=== PATIENT | male | born 1965 | race African-American/Black ===

== ENCOUNTER 2020-03-26 10:42 | Inpatient (IN) | payer OTHER ==
--- NOTE | 2020-03-26 10:57 | BHS.RME ---
Substance Use & Tx History - Substance Use History Alcohol Substance amount: 10-12 beers Substance route: Oral Date of Last Use: 03/25/20 Cocaine- Powder Substance amount: $50 Frequency of use: Daily Substance route: Smoking Date of Last Use: 03/24/20 Marijuana/Hashish Substance amount: $20 Frequency of use: Daily Substance route: Smoking Date of Last Use: 03/25/20 Nicotine Substance amount: 1/2 pack Frequency of use: Daily Substance route: Smoking Date of Last Use: 03/26/20 - Last Treatment Date of last treatment: 2015 Treatment type: Substance Use Disorder (BRETT) Where was last treatment: Detox Physical/Psych/Mental Status - Behavior General Behavior: Increased activity (restlessness, agitation) Eye Contact: Normal - Cooperativeness Cooperativeness: Cooperative - Thinking Thought Processes: Tight, Logical, Goal Directed Thought content: Future oriented - Physical Health Problems Is patient presently having any pain?: No Does patient presently have any injuries (include location): No Does patient currently have a fever: No Is patient : No CIWA Nausea/Vomitin Muscle Tremors: 3 Anxiety: 3 Agitation: 3 Paroxysmal Sweats: 5 Orientation: 0-Oriented Tacttile Disturbances: 1-Very Mild Itch/Numbness Auditory Disturbances: 0-None Visual Disturbances: 0-None Headache: 0-None Present CIWA-Ar Total Score: 18
[2020-03-26 11:33] VITALS: BMI 22.1
--- NOTE | 2020-03-26 11:37 | HP ---
CIWA Score Nausea/Vomitin Muscle Tremors: 3 Anxiety: 3 Agitation: 3 Paroxysmal Sweats: 5 Orientation: 0-Oriented Tacttile Disturbances: 1-Very Mild Itch/Numbness Auditory Disturbances: 0-None Visual Disturbances: 0-None Headache: 0-None Present CIWA-Ar Total Score: 18 - Admission Criteria OASAS Guidelines: Admission for Medically Managed Detox: Requires at least one of the followin. CIWA greater than 12 2. Seizures within the past 24 hours 3. Delirium tremens within the past 24 hours 4. Hallucinations within the past 24 hours 5. Acute intervention needed for co occurring medical disorder 6. Acute intervention needed for co occurring psychiatric disorder 7. Severe withdrawal that cannot be handled at a lower level of care (continued vomiting, continued diarrhea, abnormal vital signs) requiring intravenous medication and/or fluids 8. Admitting History and Physical - Admission Chief Complaint: " I had 8 years of abstinence and then I relapsed in 2010 and just been drinking heavily." History of Present Illness: 54 year old male with history of alcohol dependence with withdrawals seeking detox. He had 8 years of abstinence and relapsed in 2010. He was last at [facility] on 10/30-11/03/15 completed detox and then discharged but relapsed soon thereafter. 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 He has a court appearance for alcohol possession and a family court ase on 04/02/20. YAJAIRA=0 CIWA=18 Urine Tox: LUANN THC He meets criteria for detox as he has multiple medical co-morbidities and has poor environment for recovery and is at high risk for relapse and sequelae if withdraws. History Source: Patient Limitations to Obtaining History: No Limitations - Past Medical History Gastrointestinal: Yes: GERD Musculoskeletal: Yes: Osteoarthritis Endocrine: Yes: Hyperthyroidism - Past Surgical History Past Surgical History: Yes: None - Smoking History Smoking history: Current every day smoker Have you smoked in the past 12 months: Yes Aproximately how many cigarettes per day: 10 - Alcohol/Substance Use Hx Alcohol Use: Yes Number of Drinks Daily: 6 Date of Last Use: 03/11/20 - Social History Usual Living Arrangement: Yes: Alone, Other Do you think of yourself as: Straight/Heterosexual ADL: Independent Occupation: unemployed History of Recent Travel: No Admission ROS S - HPI Allergies/Adverse Reactions: Allergies Allergy/AdvReac Type Severity Reaction Status Date / Time No Known Allergies Allergy Verified 03/26/20 11:13 Exam Limitations: No Limitations - Ebola screening Have you traveled outside of the country in the last 21 days: No Have you had contact with anyone from an Ebola affected area: No Have you been sick,other than usual withdrawal symptoms: No Do you have a fever: No - Review of Systems Constitutional: Chills, Diaphoresis EENT: reports: No Symptoms Reported Respiratory: reports: No Symptoms reported Cardiac: reports: No Symptoms Reported GI: reports: No Symptoms Reported : reports: No Symptoms Reported Musculoskeletal: reports: No Symptoms Reported Integumentary: reports: No Symptoms Reported Neuro: reports: Headache, Tremors Endocrine: reports: No Symptoms Reported Hematology: reports: No Symptoms Reported Psychiatric: reports: Judgement Intact, Orientated x3, Agitated, Anxious Other Systems: Reviewed and Negative Patient History - Patient Medical History Hx Anemia: No Hx Asthma: No Hx Chronic Obstructive Pulmonary Disease (COPD): No Hx Cancer: No Hx Cardiac Disorders: No Hx Congestive Heart Failure: No Hx Hypertension: No Hx Hypercholesterolemia: No Hx Pacemaker: No HX Cerebrovascular Accident: No Hx Seizures: No Hx Dementia: No Hx Diabetes: No Hx Gastrointestinal Disorders: Yes (GERD) Hx Liver Disease: No Hx Genitourinary Disorders: No Hx Sexually Transmitted Disorders: Yes (CHLAMYDIA TREATED 5 DAYS AGO, 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) Hx Renal Disease (ESRD): No Hx Thyroid Disease: No Hx Human Immunodeficiency Virus (HIV): No Hx Hepatitis C: No Hx Depression: Yes (never treated but wants treatment) Hx Suicide Attempt: No Hx Bipolar Disorder: No Hx Schizophrenia: No - Patient Surgical History Past Surgical History: No Hx Neurologic Surgery: No Hx Cataract Extraction: No Hx Cardiac Surgery: No Hx Lung Surgery: No Hx Breast Surgery: No Hx Breast Biopsy: No Hx Abdominal Surgery: No Hx Appendectomy: No Hx Cholecystectomy: No Hx Genitourinary Surgery: No Hx Section: No Hx Orthopedic Surgery: No Anesthesia Reaction: No - PPD History Previous Implant?: Yes Documented Results: Positive w/o proof Date: 08/07/92 - Smoking Cessation Smoking history: Current every day smoker Have you smoked in the past 12 months: Yes Aproximately how many cigarettes per day: 10 Hx Chewing Tobacco Use: No Initiated information on smoking cessation: Yes 'Breaking Loose' booklet given: 03/26/20 - Substances abused Alcohol Substance route: Oral Frequency: Daily Amount used: 10-12 BEERS Age of first use: 16 Date of last use: 03/25/20 Crack Substance route: Smoking Frequency: Daily Amount used: $50 Age of first use: 20 Date of last use: 03/24/20 Marijuana/Hashish Substance route: Oral Frequency: 3-6 times per week Amount used: $20 Age of first use: 16 Date of last use: 03/25/20 Admission Physical Exam BHS - Vital Signs Vital Signs: Vital Signs - 24 hr 03/26/20 11:26 Temperature 97.6 F Pulse Rate 70 Respiratory 18 Rate Blood Pressure 151/92 - Physical General Appearance: Yes: No Apparent Distress, Nourished, Appropriately Dressed, Thin, Tremorous, Irritable, Sweating, Anxious HEENTM: Yes: EOMI, Hearing grossly Normal, Normal ENT Inspection, Normocephalic, Normal Voice, JAVY, Pharynx Normal, Tm's normal Respiratory: Yes: Chest Non-Tender, Lungs Clear, Normal Breath Sounds, No Respiratory Distress, No Accessory Muscle Use Neck: Yes: No masses,lesions,Nodules, Supple, Trachea in good position Breast: Yes: Within Normal Limits Cardiology: Yes: Regular Rhythm, Regular Rate, S1, S2 Abdominal: Yes: Normal Bowel Sounds, Non Tender, Flat, Soft Genitourinary: Yes: Within Normal Limits Back: Yes: Normal Inspection Musculoskeletal: Yes: full range of Motion, Gait Steady, Pelvis Stable Extremities: Yes: Normal Capillary Refill, Normal Inspection, Normal Range of Motion, Non-Tender Neurological: Yes: browning processor II-XII NML intact, Fully Oriented, Alert, Motor Strength 5/5, Normal Mood/Affect, Normal Response Integumentary: Yes: Normal Color, Dry, Warm Lymphatic: Yes: Within Normal Limits - Diagnostic (1) Alcohol dependence with uncomplicated withdrawal Current Visit: Yes Status: Acute (2) Cannabis dependence Current Visit: Yes Status: Chronic (3) Cocaine dependence Current Visit: Yes Status: Chronic Qualifiers: Substance use status: uncomplicated Qualified Code(s): F14.20 - Cocaine dependence, uncomplicated (4) GERD (gastroesophageal reflux disease) Current Visit: Yes Status: Chronic Qualifiers: Esophagitis presence: without esophagitis Qualified Code(s): K21.9 - Gastro-esophageal reflux disease without esophagitis (5) Low back pain Current Visit: Yes Status: Chronic Qualifiers: Back pain laterality: unspecified Sciatica presence: with sciatica presence unspecified (6) Nicotine dependence Current Visit: Yes Status: Chronic Qualifiers: Nicotine product type: cigarettes Substance use status: uncomplicated Qualified Code(s): F17.210 - Nicotine dependence, cigarettes, uncomplicated Comment: SMOKING CESSATION REFUSED AT THIS TIME AFTER DISCUSSION OF MAT. (7) Osteoarthritis of multiple joints Current Visit: Yes Status: Chronic Qualifiers: Osteoarthritis type: primary Qualified Code(s): M89.49 - Other hypertrophic osteoarthropathy, multiple sites (8) PPD positive, treated Current Visit: Yes Status: Chronic Cleared for Admission S - Detox or Rehab [facility] Level of Care: Medically Managed Detox Regimen/Protocol: Librium Claeared for Rehab Admission: No Screened but not Admitted - Documentation of Visit Screened but not Admitted: No Breathalyzer - Breathalyzer Breathalyzer: 0 Urine Drug Screen - Test Device Lot number: [id number] Expiration date: 03/10/22 - Control Is test valid?: Yes - Results Drug screen NEGATIVE: No Urine drug screen results: THC-Marijuana, LUANN-Cocaine Inpatient Rehab Admission - Rehab Decision to Admit Inpatient rehab admission?: No
[2020-03-26] MEDS ORDERED: MAGNESIUM HYDROX 2400MG/30ML ORAL SUSPENSION 30 ML CUP PO PRN (11:48)
[2020-03-26] MEDS ORDERED: IBUPROFEN 400 MG TABLET (FP) PO PRN (11:48)
[2020-03-26] MEDS ORDERED: NICOTINE POLACRILEX 2 MG GUM BUC PRN (11:48)
[2020-03-26] MEDS ORDERED: MAG HYDROX/AL HYDROX/SIMETH 30 ML UNIT-DOSE CUP PO PRN (11:48)
[2020-03-26] MEDS ORDERED: ACETAMINOPHEN 325 MG TABLET (FP) PO PRN ×2 (11:48)
[2020-03-26] MEDS ORDERED: MENTHOL/PHENOL 1 EACH UD MM PRN (11:48)
[2020-03-26] MEDS ORDERED: BISMUTH SUBSALICYLATE 524 MG/30 ML UD PO PRN (11:48)
[2020-03-26] MEDS ORDERED: METHOCARBAMOL 500 MG TABLET PO PRN (11:48)
[2020-03-26] MEDS ORDERED: MAGNESIUM CITRATE 300 ML BOTTLE PO PRN (11:48)
[2020-03-26] MEDS ORDERED: chlordiazePOXIDE HCL 25 MG CAPSULE PO PRN (11:48)
[2020-03-26] MEDS ORDERED: ONDANSETRON *ODT* 4 MG TABLET SL ONE (12:30)
[2020-03-26] MEDS: chlordiazePOXIDE HCL 25 MG CAPSULE PO SCH ×3 (13:24→22:46)
[2020-03-26] MEDS: PRENATAL VITAMINS W/ FOLIC ACID TABLET (FP) PO SCH (13:24)
[2020-03-26] MEDS: NICOTINE 7 MG/24 HOURS TOPICAL PATCH TD SCH (13:24)
[2020-03-26] MEDS: hydrOXYzine PAMOATE 25 MG CAPSULE (FP) PO SCH ×3 (13:58→22:47)
[2020-03-26 14:34] LABS: MCH 32.4 pg (25.7-33.7); MCHC 33.4 g/dl (32.0-35.9); MEAN PLT VOLUME 8.9 fl (7.5-11.1); PLATELET COUNT 201 K/MM3 (134-434); RBC 4.64 M/mm3 (4.00-5.60); RDW 14.9 % (11.9-15.9); WHITE BLOOD COUNT 6.1 K/mm3 (4.0-10.0)
[2020-03-26 14:46] LABS: ALBUMIN 4.1 g/dl (3.4-5.0); BILIRUBIN,TOTAL 2.3 mg/dL (0.2-1); BLOOD UREA NITROGEN 13.2 mg/dL (7-18); CALCIUM 9.2 mg/dL (8.5-10.1); CREATININE 1.2 mg/dL (0.55-1.3); POTASSIUM 3.9 mmol/L (3.5-5.1); TOT PROT 8.2 g/dl (6.4-8.2)
[2020-03-26] MEDS: THIAMINE HCL 100 MG TABLET (FP) PO SCH (22:46)
[2020-03-26] MEDS: MELATONIN 5 MG TABLETS PO SCH (23:01)
[2020-03-27] MEDS: hydrOXYzine PAMOATE 25 MG CAPSULE (FP) PO SCH ×5 (05:46→22:34)
[2020-03-27] MEDS: chlordiazePOXIDE HCL 25 MG CAPSULE PO SCH ×4 (05:46→22:34)
[2020-03-27] MEDS: PRENATAL VITAMINS W/ FOLIC ACID TABLET (FP) PO SCH (10:41)
[2020-03-27] MEDS: NICOTINE 7 MG/24 HOURS TOPICAL PATCH TD SCH (10:41)
[2020-03-27] MEDS: PANTOPRAZOLE 40 MG TABLET PO SCH (10:41)
--- NOTE | 2020-03-27 14:01 | PN ---
S CIWA - CIWA Score Nausea/Vomitin-Mild Nausea/No Vomiting Muscle Tremors: 2 Anxiety: 2 Agitation: 2 Paroxysmal Sweats: No Perspiration Orientation: 0-Oriented Tacttile Disturbances: 1-Very Mild Itch/Numbness Auditory Disturbances: 0-None Visual Disturbances: 0-None Headache: 2-Mild CIWA-Ar Total Score: 10 S Progress Note (SOAP) Subjective: alert,irritable,anxious,interrupted sleep,tremor,pain in tghe body and back,[place] Objective: 03/27/20 15:42 Vital Signs Temperature 98.1 F 03/27/20 12:51 Pulse Rate 84 03/27/20 12:51 Respiratory Rate 17 03/27/20 12:51 Blood Pressure 144/94 03/27/20 12:51 O2 Sat by Pulse Oximetry (%) 99 03/27/20 12:51 Laboratory Last Values WBC 6.1 K/mm3 (4.0-10.0) 03/26/20 11:50 RBC 4.64 M/mm3 (4.00-5.60) 03/26/20 11:50 Hgb 15.0 GM/dL (11.7-16.9) 03/26/20 11:50 Hct 45.0 % (35.4-49) 03/26/20 11:50 MCV 97.0 fl (80-96) H 03/26/20 11:50 MCH 32.4 pg (25.7-33.7) 03/26/20 11:50 MCHC 33.4 g/dl (32.0-35.9) 03/26/20 11:50 RDW 14.9 % (11.9-15.9) 03/26/20 11:50 Plt Count 201 K/MM3 (134-434) 03/26/20 11:50 MPV 8.9 fl (7.5-11.1) 03/26/20 11:50 Sodium 138 mmol/L (136-145) 03/26/20 11:50 Potassium 3.9 mmol/L (3.5-5.1) 03/26/20 11:50 Chloride 101 mmol/L (98-107) 03/26/20 11:50 Carbon Dioxide 26 mmol/L (21-32) 03/26/20 11:50 Anion Gap 11 MMOL/L (8-16) 03/26/20 11:50 BUN 13.2 mg/dL (7-18) 03/26/20 11:50 Creatinine 1.2 mg/dL (0.55-1.3) 03/26/20 11:50 Est GFR (CKD-EPI)AfAm 79.53 03/26/20 11:50 Est GFR (CKD-EPI)NonAf 68.62 03/26/20 11:50 Random Glucose 146 mg/dL (74-106) H 03/26/20 11:50 Calcium 9.2 mg/dL (8.5-10.1) 03/26/20 11:50 Total Bilirubin 2.3 mg/dL (0.2-1) H 03/26/20 11:50 AST 72 U/L (15-37) H 03/26/20 11:50 ALT 38 U/L (13-61) 03/26/20 11:50 Alkaline Phosphatase 58 U/L (45-117) 03/26/20 11:50 Total Protein 8.2 g/dl (6.4-8.2) 03/26/20 11:50 Albumin 4.1 g/dl (3.4-5.0) 03/26/20 11:50 Syphilis Serology Non-reactive (NONREACTIVE) 03/26/20 11:50 COVID-19 (PALAK) Not detected (Not Detected) 03/26/20 12:40 Assessment: 03/27/20 15:43 withdrawal symptom Plan: continue detox librium regimen,repeat cmp,fasting glucose in am
[2020-03-27] MEDS: THIAMINE HCL 100 MG TABLET (FP) PO SCH (22:34)
[2020-03-27] MEDS: MELATONIN 5 MG TABLETS PO SCH (22:34)
[2020-03-28] MEDS: chlordiazePOXIDE HCL 25 MG CAPSULE PO SCH ×3 (06:04→17:49)
[2020-03-28] MEDS: hydrOXYzine PAMOATE 25 MG CAPSULE (FP) PO SCH ×4 (06:04→17:49)
[2020-03-28] MEDS: PANTOPRAZOLE 40 MG TABLET PO SCH (10:45)
[2020-03-28] MEDS: NICOTINE 7 MG/24 HOURS TOPICAL PATCH TD SCH (10:45)
[2020-03-28] MEDS: PRENATAL VITAMINS W/ FOLIC ACID TABLET (FP) PO SCH (10:45)
--- NOTE | 2020-03-28 10:50 | PN ---
[facility] CIWA - CIWA Score Nausea/Vomitin-No Nausea/No Vomiting Muscle Tremors: 3 Anxiety: 3 Agitation: 2 Paroxysmal Sweats: 2 Orientation: 0-Oriented Tacttile Disturbances: 0-None Auditory Disturbances: 1-Very Mild Visual Disturbances: 0-None Headache: 0-None Present CIWA-Ar Total Score: 11 S Progress Note (SOAP) Subjective: Complaints of tremors, anxiety, agitation, sweats and noise sensitivity. Objective: 03/28/20 10:49 Vital Signs 03/28/20 03/28/20 05:58 09:15 Temperature 97.5 F L 97.7 F Pulse Rate 70 85 Respiratory 16 20 Rate Blood Pressure 123/84 131/85 O2 Sat by Pulse 96 96 Oximetry (%) Laboratory Last Values WBC 6.1 K/mm3 (4.0-10.0) 03/26/20 11:50 RBC 4.64 M/mm3 (4.00-5.60) 03/26/20 11:50 Hgb 15.0 GM/dL (11.7-16.9) 03/26/20 11:50 Hct 45.0 % (35.4-49) 03/26/20 11:50 MCV 97.0 fl (80-96) H 03/26/20 11:50 MCH 32.4 pg (25.7-33.7) 03/26/20 11:50 MCHC 33.4 g/dl (32.0-35.9) 03/26/20 11:50 RDW 14.9 % (11.9-15.9) 03/26/20 11:50 Plt Count 201 K/MM3 (134-434) 03/26/20 11:50 MPV 8.9 fl (7.5-11.1) 03/26/20 11:50 Sodium 138 mmol/L (136-145) 03/26/20 11:50 Potassium 3.9 mmol/L (3.5-5.1) 03/26/20 11:50 Chloride 101 mmol/L (98-107) 03/26/20 11:50 Carbon Dioxide 26 mmol/L (21-32) 03/26/20 11:50 Anion Gap 11 MMOL/L (8-16) 03/26/20 11:50 BUN 13.2 mg/dL (7-18) 03/26/20 11:50 Creatinine 1.2 mg/dL (0.55-1.3) 03/26/20 11:50 Est GFR (CKD-EPI)AfAm 79.53 03/26/20 11:50 Est GFR (CKD-EPI)NonAf 68.62 03/26/20 11:50 Random Glucose 146 mg/dL (74-106) H 03/26/20 11:50 Calcium 9.2 mg/dL (8.5-10.1) 03/26/20 11:50 Total Bilirubin 2.3 mg/dL (0.2-1) H 03/26/20 11:50 AST 72 U/L (15-37) H 03/26/20 11:50 ALT 38 U/L (13-61) 03/26/20 11:50 Alkaline Phosphatase 58 U/L (45-117) 03/26/20 11:50 Total Protein 8.2 g/dl (6.4-8.2) 03/26/20 11:50 Albumin 4.1 g/dl (3.4-5.0) 03/26/20 11:50 Syphilis Serology Non-reactive (NONREACTIVE) 03/26/20 11:50 COVID-19 (PALAK) Not detected (Not Detected) 03/26/20 12:40 Labs noted. Assessment: 03/28/20 10:49 Alert and oriented x 3, in no acute respiratory distress. Full ROM, ambulating in the unit without assistance. Withdrawal symptoms. Plan: Continue detox protocol.
[2020-03-28 12:36] LABS: BILIRUBIN,TOTAL 0.6 mg/dL (0.2-1); BLOOD UREA NITROGEN 12.8 mg/dL (7-18); CALCIUM 8.6 mg/dL (8.5-10.1); POTASSIUM 3.4 mmol/L (3.5-5.1); TOT PROT 6.4 g/dl (6.4-8.2)
[2020-03-28 18:10] VITALS: TEMP 97.3
[2020-03-28 20:11] VITALS: BP 142/97; PULSE 112
--- NOTE | 2020-03-28 20:12 | DS ---
[facility] Detox Discharge Summary Admission Date: 03/26/20 Discharge Date: 03/28/20 - History Present History: Alcohol Dependence, Cannabis Dependence, Cocaine Dependence Additional Comments: CLIENT SIGNED OUT AMA. DECLINES TO CONT TXMENT AT THIS TIME. NOT OPEN TO FURTHER DISCUSSION ABOUT RISK INVOLVED IN ABRUPTING TXMENT. OR ENCOURAGEMENT TO CONT TXMENT. CLIENT REPORTS HE HAS SOMETHING TO TAKE CARE AT HOME. HE DENIES ANY C/O, TO INCLUDES SOB, C.P. A/O X3 NAD CV- RRR LUNGS CTAB EXTREMITIES- AMBULATING W/O DIFFICULTY Pertinent Past History: GERD LOW BACK PAIN NICOTINE DEP + PPD - Physical Exam Results Vital Signs: Vital Signs Temperature 97.3 F L 03/28/20 17:16 Pulse Rate 112 H 03/28/20 20:10 Respiratory Rate 18 03/28/20 20:10 Blood Pressure 142/97 03/28/20 20:10 O2 Sat by Pulse Oximetry (%) 100 03/28/20 20:10 Pertinent Admission Physical Exam Findings: WITHDRAWAL SX'S Laboratory Tests 03/26/20 03/26/20 03/26/20 11:50 11:50 11:50 WBC 6.1 RBC 4.64 Hgb 15.0 Hct 45.0 MCV 97.0 H MCH 32.4 MCHC 33.4 RDW 14.9 Plt Count 201 MPV 8.9 Sodium 138 Potassium 3.9 Chloride 101 Carbon Dioxide 26 Anion Gap 11 BUN 13.2 Creatinine 1.2 Est GFR (CKD-EPI)AfAm 79.53 Est GFR (CKD-EPI)NonAf 68.62 Random Glucose 146 H Fasting Glucose Calcium 9.2 Total Bilirubin 2.3 H AST 72 H ALT 38 Alkaline Phosphatase 58 Total Protein 8.2 Albumin 4.1 Syphilis Serology Non-reactive COVID-19 ([facility]AK) 03/26/20 03/28/20 03/28/20 12:40 07:15 07:15 WBC RBC Hgb Hct MCV MCH MCHC RDW Plt Count MPV Sodium 142 Potassium 3.4 L Chloride 108 H Carbon Dioxide 27 Anion Gap 7 L BUN 12.8 Creatinine 1.0 Est GFR (CKD-EPI)AfAm 99.15 Est GFR (CKD-EPI)NonAf 85.55 Random Glucose 87 Fasting Glucose 88 Calcium 8.6 Total Bilirubin 0.6 AST 76 H ALT 43 Alkaline Phosphatase 61 Total Protein 6.4 Albumin 3.0 L Syphilis Serology COVID-19 (PALAK) Not detected - Treatment Hospital Course: Discharged Condition Good Patient has Accepted a Rehab Referral to: DECLINES - Medication Discharge Medications: Ambulatory Orders Omeprazole [Prilosec] 40 mg PO DAILY 10/31/15 - Diagnosis (1) Alcohol dependence with uncomplicated withdrawal Status: Resolved (2) Cannabis dependence Status: Chronic (3) Cocaine dependence Status: Chronic Qualifiers: Substance use status: uncomplicated Qualified Code(s): F14.20 - Cocaine dependence, uncomplicated (4) GERD (gastroesophageal reflux disease) Status: Chronic Qualifiers: Esophagitis presence: without esophagitis Qualified Code(s): K21.9 - Gastro-esophageal reflux disease without esophagitis (5) Low back pain Status: Chronic Qualifiers: Back pain laterality: unspecified Sciatica presence: with sciatica presence unspecified (6) Nicotine dependence Status: Chronic Qualifiers: Nicotine product type: cigarettes Substance use status: uncomplicated Qualified Code(s): F17.210 - Nicotine dependence, cigarettes, uncomplicated (7) PPD positive, treated Status: Chronic - AMA Did Patient Leave Against Medical Advice: Yes
[2020-03-29] MEDS ORDERED: chlordiazePOXIDE HCL 10 MG CAPSULE PO PRN
[2020-03-29] MEDS ORDERED: chlordiazePOXIDE HCL 10 MG CAPSULE PO SCH (05:00)
[2020-03-30] MEDS ORDERED: chlordiazePOXIDE HCL 10 MG CAPSULE PO SCH (05:00)
--- NOTE | 2020-03-30 14:34 | BHS.RME ---
Substance Use & Tx History - Substance Use History Alcohol Substance amount: 8 of 18 ozs of beer Frequency of use: Daily Date of Last Use: 03/29/20 Cocaine-Crack Substance amount: 20$ Frequency of use: Less than 3 times per week Substance route: Smoking Date of Last Use: 03/29/20 Marijuana/Hashish Substance amount: 20$ Frequency of use: Less than 3 times per week Substance route: Smoking Physical/Psych/Mental Status - Behavior Eye Contact: Normal - Cooperativeness Cooperativeness: Cooperative - Thinking Thought Processes: Logical Thought content: Future oriented - Physical Health Problems Is patient presently having any pain?: No Does patient presently have any injuries (include location): No Does patient currently have a fever: No CIWA Nausea/Vomitin-No Nausea/No Vomiting Muscle Tremors: 1-None Visible, but [place] Anxiety: 0-No Anxiety, at Ease Agitation: 0-Normal Activity Paroxysmal Sweats: No Perspiration Orientation: 0-Oriented Tacttile Disturbances: 0-None Auditory Disturbances: 0-None Visual Disturbances: 0-None Headache: 0-None Present CIWA-Ar Total Score: 1
--- NOTE | 2020-03-30 14:47 | HP ---
CIWA Score Nausea/Vomitin-No Nausea/No Vomiting Muscle Tremors: 1-None Visible, but [place] Anxiety: 0-No Anxiety, at Ease Agitation: 0-Normal Activity Paroxysmal Sweats: No Perspiration Orientation: 0-Oriented Tacttile Disturbances: 0-None Auditory Disturbances: 0-None Visual Disturbances: 0-None Headache: 0-None Present CIWA-Ar Total Score: 1 - Admission Criteria [facility]ASAS Guidelines: Admission for Medically Managed Detox: Requires at least one of the followin. CIWA greater than 12 2. Seizures within the past 24 hours 3. Delirium tremens within the past 24 hours 4. Hallucinations within the past 24 hours 5. Acute intervention needed for co occurring medical disorder 6. Acute intervention needed for co occurring psychiatric disorder 7. Severe withdrawal that cannot be handled at a lower level of care (continued vomiting, continued diarrhea, abnormal vital signs) requiring intravenous medication and/or fluids 8. Admitting History and Physical - Admission Chief Complaint: i madhavi help to stop driinking alcohol,cocaine and marijuana History of Present Illness: this 54 years old male with alcohol,crack and marijuana abused,seeking helpp,patient was admitted in [facility] from 03/16/20 to 03/28/20 left [facility]a homeless History Source: Patient Limitations to Obtaining History: No Limitations - Past Medical History Gastrointestinal: Yes: GERD Musculoskeletal: Yes: Osteoarthritis Endocrine: Yes: Hyperthyroidism - Past Surgical History Past Surgical History: Yes: None - Smoking History Smoking history: Current every day smoker Have you smoked in the past 12 months: Yes Aproximately how many cigarettes per day: 10 - Alcohol/Substance Use Hx Alcohol Use: Yes Number of Drinks Daily: 6 Date of Last Use: 03/29/20 - Social History Usual Living Arrangement: Yes: Other (homeless) Do you think of yourself as: Straight/Heterosexual ADL: Support Services Occupation: unemployed History of Recent Travel: No Other Social History: homeless,unemployed,no legl issue Admission ROS S - HPI Chief Complaint: I need help to stop drinking alcohol,crack and marijuana Allergies/Adverse Reactions: Allergies Allergy/AdvReac Type Severity Reaction Status Date / Time No Known Allergies Allergy Verified 03/26/20 11:13 History of Present Illness: this 54 years old male with alcohol,crack and narijuana abused,need help, last detox 03/26/2020 to 03/28/2020 left ama homeless unemployed nicotine [id number] denied seizure,denied syncope longest sobriety 8 years gerd patient contracted and agreed to go to rehab Exam Limitations: No Limitations - Ebola screening Have you traveled outside of the country in the last 21 days: No Have you had contact with anyone from an Ebola affected area: No Have you been sick,other than usual withdrawal symptoms: No Do you have a fever: No - Review of Systems Constitutional: No Symptoms Reported EENT: reports: No Symptoms Reported Respiratory: reports: No Symptoms reported Cardiac: reports: No Symptoms Reported GI: reports: No Symptoms Reported, Other (history of gerd) : reports: No Symptoms Reported Musculoskeletal: reports: No Symptoms Reported Integumentary: reports: No Symptoms Reported Neuro: reports: No Symptoms reported Endocrine: reports: No Symptoms Reported Hematology: reports: No Symptoms Reported Psychiatric: reports: No Sypmtoms Reported, Judgement Intact, Mood/Affect Appropiate, Orientated x3 Other Systems: Reviewed and Negative Patient History - Patient Medical History Hx Anemia: No Hx Asthma: No Hx Chronic Obstructive Pulmonary Disease (COPD): No Hx Cancer: No Hx Cardiac Disorders: No Hx Congestive Heart Failure: No Hx Hypertension: No Hx Hypercholesterolemia: No Hx Pacemaker: No HX Cerebrovascular Accident: No Hx Seizures: No Hx Dementia: No Hx Diabetes: No Hx Gastrointestinal Disorders: Yes (GERD) Hx Liver Disease: No Hx Genitourinary Disorders: No Hx Sexually Transmitted Disorders: Yes (CHLAMYDIA TREATED 5 DAYS AGO, 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) Hx Renal Disease (ESRD): No Hx Thyroid Disease: No Hx Human Immunodeficiency Virus (HIV): No (last 2019 negative) Hx Hepatitis C: No Hx Depression: Yes (anxiety) Hx Suicide Attempt: No Hx Bipolar Disorder: No Hx Schizophrenia: No - Patient Surgical History Past Surgical History: No Hx Neurologic Surgery: No Hx Cataract Extraction: No Hx Cardiac Surgery: No Hx Lung Surgery: No Hx Breast Surgery: No Hx Breast Biopsy: No Hx Abdominal Surgery: No Hx Appendectomy: No Hx Cholecystectomy: No Hx Genitourinary Surgery: No Hx Section: No Hx Orthopedic Surgery: No Anesthesia Reaction: No - PPD History Previous Implant?: Yes Documented Results: Positive w/o proof Implanted On Prior [facility] Admission?: No Results: cxr(-)03/27/20 PPD to be Administered?: No - Smoking Cessation Smoking history: Current every day smoker Have you smoked in the past 12 months: Yes Aproximately how many cigarettes per day: 10 Hx Chewing Tobacco Use: No Initiated information on smoking cessation: Yes 'Breaking Loose' booklet given: 03/30/20 - Substance & Tx. History Hx Alcohol Use: Yes Hx Substance Use: Yes Substance Use Type: Alcohol, Cocaine, Marijuana - Substances abused Alcohol Substance route: Oral Frequency: Daily Amount used: 10-12 BEERS Age of first use: 16 Date of last use: 03/29/20 Crack Substance route: Smoking Frequency: Daily Amount used: $50 Age of first use: 20 Date of last use: 03/29/20 Marijuana/Hashish Substance route: Oral Frequency: 3-6 times per week Amount used: $20 Age of first use: 16 Date of last use: 03/29/20 Admission Physical Exam [facility] - Physical General Appearance: Yes: Within Normal Limits HEENTM: Yes: Normal ENT Inspection, JAVY, Pharynx Normal Respiratory: Yes: Lungs Clear, Normal Breath Sounds, No Respiratory Distress Neck: Yes: Within Normal Limits, Supple, Trachea in good position Breast: Yes: Within Normal Limits Cardiology: Yes: Within Normal Limits, Regular Rhythm, Regular Rate, S1, S2 Abdominal: Yes: Within Normal Limits, Normal Bowel Sounds, Non Tender, Flat, Soft Genitourinary: Yes: Within Normal Limits Back: Yes: Within Normal Limits, Normal Inspection Musculoskeletal: Yes: full range of Motion Extremities: Yes: Within Normal Limits 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 NML intact, Fully Oriented, Alert, Motor Strength 5/5 Integumentary: Yes: Within Normal Limits Lymphatic: Yes: Within Normal Limits - Diagnostic (1) Alcohol dependence Status: Chronic Qualifiers: Complication of substance-induced condition: uncomplicated Qualified Code(s): F10.230 - Alcohol dependence with withdrawal, uncomplicated (2) Cannabis dependence Status: Chronic (3) Crack cocaine use Status: Chronic (4) GERD (gastroesophageal reflux disease) Status: Chronic Qualifiers: Esophagitis presence: without esophagitis Qualified Code(s): K21.9 - Gastro-esophageal reflux disease without esophagitis (5) PPD positive, treated Status: Chronic Cleared for Admission [facility] - Detox or Rehab Claeared for Rehab Admission: Yes Breathalyzer - Breathalyzer Breathalyzer: 0 Urine Drug Screen - Test Device Lot number: [id number] Expiration date: 03/10/22 - Control Is test valid?: Yes - Results Drug screen NEGATIVE: No Urine drug screen results: THC-Marijuana, LUANN-Cocaine Inpatient Rehab Admission - Rehab Decision to Admit Inpatient rehab admission?: Yes - Initial Determination Are CD services needed?: Yes Free of communicable disease: Yes Not in need of hospitalization: Yes - Rehab Admission Criteria Previous failed treatment: Yes Poor recovery environment: Yes Comorbidities: Yes Lacks judgement: No Patient is meeting Inpatient Rehab admission criteria:: Yes
[2020-03-30] MEDS ORDERED: NICOTINE POLACRILEX 2 MG GUM BUC PRN (15:04)
[2020-03-30] MEDS ORDERED: guaiFENesin 200 MG/10 ML 10 ML UNIT-DOSE CUPS PO PRN (15:04)
[2020-03-30] MEDS ORDERED: IBUPROFEN 400 MG TABLET (FP) PO PRN (15:04)
[2020-03-30] MEDS ORDERED: LOPERAMIDE HCL 2 MG CAPSULE PO PRN (15:04)
[2020-03-30] MEDS ORDERED: MAGNESIUM HYDROX 2400MG/30ML ORAL SUSPENSION 30 ML CUP PO PRN (15:04)
[2020-03-30] MEDS ORDERED: MAG HYDROX/AL HYDROX/SIMETH 30 ML UNIT-DOSE CUP PO PRN (15:04)
[2020-03-30] MEDS ORDERED: ACETAMINOPHEN 325 MG TABLET (FP) PO PRN (15:04)
[2020-03-30] MEDS ORDERED: MAGNESIUM CITRATE 300 ML BOTTLE PO PRN (15:04)
[2020-03-30] MEDS ORDERED: P-EPHED 60MG/TRIPROLIDI 2.5MG TABLET PO PRN (15:04)
[2020-03-30] MEDS ORDERED: hydrOXYzine PAMOATE 25 MG CAPSULE (FP) PO SCH (18:00)
[2020-03-30] MEDS ORDERED: MELATONIN 5 MG TABLETS PO SCH (22:00)
[2020-03-30] MEDS ORDERED: THIAMINE HCL 100 MG TABLET (FP) PO SCH (22:00)
[2020-03-31] MEDS ORDERED: chlordiazePOXIDE HCL 10 MG CAPSULE PO ONE (05:00)
[2020-03-31] MEDS ORDERED: PRENATAL VITAMINS W/ FOLIC ACID TABLET (FP) PO SCH (10:00)
[2020-03-31] MEDS ORDERED: NICOTINE 7 MG/24 HOURS TOPICAL PATCH TD SCH (10:00)
[2020-03-31] MEDS ORDERED: FAMOTIDINE 20 MG TABLET PO SCH (10:00)
== END 2020-03-28 20:12 | disposition left against medical advice (07) | DRG 770 ==
LOC: YASAS 10:42 → Y6N 11:18
PROVIDERS: ADMIT Allergy & Immunology; ATTEND Allergy & Immunology
PROC: HZ2ZZZZ Detoxification Services for Substance Abuse Treatment (ICD-10-PCS; principal; 2020-03-26)
DX: F10.230 Alcohol dependence with withdrawal, uncomplicated (principal); F14.20 Cocaine dependence, uncomplicated; F12.20 Cannabis dependence, uncomplicated; F17.210 Nicotine dependence, cigarettes, uncomplicated; E05.90 Thyrotoxicosis, unspecified without thyrotoxic crisis or storm; K21.9 Gastro-esophageal reflux disease without esophagitis; M54.40 Lumbago with sciatica, unspecified side; M89.49 Other hypertrophic osteoarthropathy, multiple sites; Z86.19 Personal history of other infectious and parasitic diseases; R76.11 Nonspecific reaction to tuberculin skin test without active tuberculosis; Z59.0 Homelessness
CPT/HCPCS: 36415; 71046-TC-FY; 80053; 82947; 85027; 86780; U0003

== ENCOUNTER 2020-12-28 10:09 | Inpatient (IN) | payer OTHER ==
[2020-12-28 10:41] VITALS: BMI 22.5
[2020-12-28] MEDS ORDERED: NICOTINE POLACRILEX 2 MG GUM BUC PRN (12:34)
[2020-12-28] MEDS ORDERED: MAG HYDROX/AL HYDROX/SIMETH 30 ML UNIT-DOSE CUP PO PRN (12:34)
[2020-12-28] MEDS ORDERED: ACETAMINOPHEN 325 MG TABLET (FP) PO PRN ×2 (12:34)
[2020-12-28] MEDS ORDERED: METHOCARBAMOL 500 MG TABLET PO PRN (12:34)
[2020-12-28] MEDS ORDERED: MENTHOL/PHENOL 1 EACH UD MM PRN (12:34)
[2020-12-28] MEDS ORDERED: MAGNESIUM HYDROX 2400MG/30ML ORAL SUSPENSION 30 ML CUP PO PRN (12:34)
[2020-12-28] MEDS ORDERED: MAGNESIUM CITRATE 300 ML BOTTLE PO PRN (12:34)
[2020-12-28] MEDS ORDERED: ONDANSETRON *ODT* 4 MG TABLET SL PRN (12:34)
[2020-12-28] MEDS ORDERED: LORazepam 1 MG TABLET PO PRN (12:34)
[2020-12-28] MEDS ORDERED: BISMUTH SUBSALICYLATE 524 MG/30 ML PO PRN (12:34)
[2020-12-28] MEDS ORDERED: LISINOPRIL 10 MG TABLET PO ONE (13:30)
[2020-12-28] MEDS: NICOTINE 14 MG/24 HOURS TOPICAL PATCH TD SCH (13:56)
[2020-12-28] MEDS: PRENATAL VITAMINS W/ FOLIC ACID TABLET (FP) PO SCH (13:57)
[2020-12-28] MEDS: hydrOXYzine PAMOATE 25 MG CAPSULE (FP) PO SCH ×3 (13:57→22:18)
[2020-12-28] MEDS: LORazepam 2 MG TABLET PO SCH ×2 (18:38→22:19)
[2020-12-28 20:17] LABS: HEMATOCRIT 44.6 % (35.4-49); MCH 32.9 pg (25.7-33.7); MCHC 33.7 g/dl (32.0-35.9); MEAN CELL VOLUME 97.8 fl (80-96); MEAN PLT VOLUME 9.3 fl (7.5-11.1); PLATELET COUNT 199 K/MM3 (134-434); RBC 4.56 M/mm3 (4.00-5.60); RDW 15.7 % (11.9-15.9)
[2020-12-28 20:18] LABS: BLOOD UREA NITROGEN 12.3 mg/dL (7-18)
[2020-12-28 20:20] LABS: ALBUMIN 4.2 g/dl (3.4-5.0)
[2020-12-28 20:23] LABS: BILIRUBIN,TOTAL 1.2 mg/dL (0.2-1); TOT PROT 8.3 g/dl (6.4-8.2)
[2020-12-28 21:12] LABS: HIV INTERPRETATION NEGATIVE (NEGATIVE)
[2020-12-28] MEDS: THIAMINE HCL 100 MG TABLET (FP) PO SCH (22:18)
[2020-12-28] MEDS: MELATONIN 5 MG TABLETS PO SCH (22:18)
[2020-12-29] MEDS: LORazepam 2 MG TABLET PO SCH ×4 (05:52→22:25)
[2020-12-29] MEDS: hydrOXYzine PAMOATE 25 MG CAPSULE (FP) PO SCH ×5 (05:52→22:25)
[2020-12-29] MEDS: ASPIRIN 81 MG CHEWABLE TABLETS PO SCH (11:06)
[2020-12-29] MEDS: PRENATAL VITAMINS W/ FOLIC ACID TABLET (FP) PO SCH (11:06)
[2020-12-29] MEDS: PANTOPRAZOLE 40 MG TABLET PO SCH (11:06)
[2020-12-29] MEDS: NICOTINE 14 MG/24 HOURS TOPICAL PATCH TD SCH (11:07)
[2020-12-29] MEDS: amLODIPine BESYLATE 5 MG TABLET (FP) PO SCH (13:53)
[2020-12-29] MEDS: THIAMINE HCL 100 MG TABLET (FP) PO SCH (22:25)
[2020-12-29] MEDS: MELATONIN 5 MG TABLETS PO SCH (22:26)
[2020-12-30] MEDS: LORazepam 1 MG TABLET PO SCH ×4 (05:37→22:32)
[2020-12-30] MEDS: hydrOXYzine PAMOATE 25 MG CAPSULE (FP) PO SCH ×5 (05:37→22:32)
[2020-12-30] MEDS: PANTOPRAZOLE 40 MG TABLET PO SCH (10:17)
[2020-12-30] MEDS: amLODIPine BESYLATE 5 MG TABLET (FP) PO SCH (10:17)
[2020-12-30] MEDS: PRENATAL VITAMINS W/ FOLIC ACID TABLET (FP) PO SCH (10:17)
[2020-12-30] MEDS: ASPIRIN 81 MG CHEWABLE TABLETS PO SCH (10:18)
[2020-12-30] MEDS: NICOTINE 14 MG/24 HOURS TOPICAL PATCH TD SCH (10:18)
[2020-12-30] MEDS: MELATONIN 5 MG TABLETS PO SCH (22:31)
[2020-12-30] MEDS: THIAMINE HCL 100 MG TABLET (FP) PO SCH (22:32)
[2020-12-31] MEDS ORDERED: LORazepam 0.5 MG TABLET PO PRN
[2020-12-31] MEDS: LORazepam 0.5 MG TABLET PO SCH ×4 (06:00→22:30)
[2020-12-31] MEDS: hydrOXYzine PAMOATE 25 MG CAPSULE (FP) PO SCH ×5 (06:00→22:31)
[2020-12-31 10:07] LABS: SARS-CoV-2 NAA Not Detected (Not Detected)
[2020-12-31] MEDS: ASPIRIN 81 MG CHEWABLE TABLETS PO SCH (10:18)
[2020-12-31] MEDS: NICOTINE 14 MG/24 HOURS TOPICAL PATCH TD SCH (10:18)
[2020-12-31] MEDS: PANTOPRAZOLE 40 MG TABLET PO SCH (10:18)
[2020-12-31] MEDS: amLODIPine BESYLATE 5 MG TABLET (FP) PO SCH (10:18)
[2020-12-31] MEDS: IBUPROFEN 400 MG TABLET (FP) PO PRN ×2 (10:19→17:43)
[2020-12-31] MEDS: PRENATAL VITAMINS W/ FOLIC ACID TABLET (FP) PO SCH (12:13)
[2020-12-31] MEDS: MELATONIN 5 MG TABLETS PO SCH (22:30)
[2020-12-31] MEDS: THIAMINE HCL 100 MG TABLET (FP) PO SCH (22:30)
[2021-01-01] MEDS ORDERED: LORazepam 0.5 MG TABLET PO ONE (05:00)
[2021-01-01] MEDS: hydrOXYzine PAMOATE 25 MG CAPSULE (FP) PO SCH ×2 (05:38→09:34)
[2021-01-01] MEDS: amLODIPine BESYLATE 5 MG TABLET (FP) PO SCH (09:33)
[2021-01-01] MEDS: ASPIRIN 81 MG CHEWABLE TABLETS PO SCH (09:33)
[2021-01-01] MEDS: PANTOPRAZOLE 40 MG TABLET PO SCH (09:33)
[2021-01-01] MEDS: PRENATAL VITAMINS W/ FOLIC ACID TABLET (FP) PO SCH (09:34)
[2021-01-01] MEDS: NICOTINE 14 MG/24 HOURS TOPICAL PATCH TD SCH (09:34)
[2021-01-01 09:47] VITALS: BP 124/86; PULSE 85; TEMP 98.4
== END 2021-01-01 09:40 | disposition home or self-care (01) | DRG 774 ==
LOC: YASAS 10:09 → Y6N 12:09
PROVIDERS: ADMIT Allergy & Immunology; ATTEND Allergy & Immunology
PROC: HZ2ZZZZ Detoxification Services for Substance Abuse Treatment (ICD-10-PCS; principal; 2020-12-28)
DX: F10.230 Alcohol dependence with withdrawal, uncomplicated (principal); F14.20 Cocaine dependence, uncomplicated; F12.20 Cannabis dependence, uncomplicated; F17.210 Nicotine dependence, cigarettes, uncomplicated; E05.90 Thyrotoxicosis, unspecified without thyrotoxic crisis or storm; I10 Essential (primary) hypertension; K21.9 Gastro-esophageal reflux disease without esophagitis; M89.49 Other hypertrophic osteoarthropathy, multiple sites; R74.01 Elevation of levels of liver transaminase levels; Z59.0 Homelessness
CPT/HCPCS: 36415; 80053; 85027; 86780; 87389; C9803; U0003; U0005

== ENCOUNTER 2021-03-23 14:47 | Inpatient (IN) | payer OTHER ==
[2021-03-23 17:45] VITALS: BMI 22.8
[2021-03-23] MEDS ORDERED: MENTHOL/PHENOL 1 EACH UD MM PRN (20:05)
[2021-03-23] MEDS ORDERED: ACETAMINOPHEN 325 MG TABLET (FP) PO PRN ×2 (20:05)
[2021-03-23] MEDS ORDERED: MAG HYDROX/AL HYDROX/SIMETH 30 ML UNIT-DOSE CUP PO PRN (20:05)
[2021-03-23] MEDS ORDERED: ONDANSETRON *ODT* 4 MG TABLET SL PRN (20:05)
[2021-03-23] MEDS ORDERED: BISMUTH SUBSALICYLATE 524 MG/30 ML PO PRN (20:05)
[2021-03-23] MEDS ORDERED: MAGNESIUM HYDROX 2400MG/30ML ORAL SUSPENSION 30 ML CUP PO PRN (20:05)
[2021-03-23] MEDS ORDERED: MAGNESIUM CITRATE 300 ML BOTTLE PO PRN (20:05)
[2021-03-23] MEDS ORDERED: IBUPROFEN 400 MG TABLET (FP) PO PRN (20:05)
[2021-03-23] MEDS ORDERED: LORazepam 1 MG TABLET PO PRN (20:05)
[2021-03-23] MEDS ORDERED: NICOTINE 10 MG CARTRIDGE (INHALER) IH PRN (20:05)
[2021-03-23] MEDS: LORazepam 2 MG TABLET PO SCH (22:19)
[2021-03-23] MEDS: THIAMINE HCL 100 MG TABLET (FP) PO SCH (22:20)
[2021-03-23] MEDS: MELATONIN 5 MG TABLETS PO SCH (22:20)
[2021-03-23] MEDS: hydrOXYzine PAMOATE 25 MG CAPSULE (FP) PO SCH (22:20)
[2021-03-24] MEDS: hydrOXYzine PAMOATE 25 MG CAPSULE (FP) PO SCH ×5 (05:37→22:52)
[2021-03-24] MEDS: LORazepam 2 MG TABLET PO SCH ×4 (05:37→22:52)
[2021-03-24] MEDS ORDERED: amLODIPine BESYLATE 5 MG TABLET (FP) PO SCH (10:00)
[2021-03-24] MEDS: PRENATAL VITAMINS W/ FOLIC ACID TABLET (FP) PO SCH (10:17)
[2021-03-24] MEDS: PANTOPRAZOLE 40 MG TABLET PO SCH (10:17)
[2021-03-24] MEDS: amLODIPine BESYLATE 5 MG TABLET (FP) PO SCH (10:17)
[2021-03-24] MEDS: ASPIRIN 81 MG CHEWABLE TABLETS PO SCH (10:18)
[2021-03-24 11:05] LABS: HEMATOCRIT 40.9 % (35.4-49); HEMOGLOBIN 13.9 GM/dL (11.7-16.9); MCH 33.6 pg (25.7-33.7); MCHC 34.1 g/dl (32.0-35.9); MEAN CELL VOLUME 98.6 fl (80-96); PLATELET COUNT 174 10^3/uL (134-434); RBC 4.14 M/mm3 (4.00-5.60); RDW 14.2 % (11.9-15.9); WHITE BLOOD COUNT 6.5 K/mm3 (4.0-10.0)
[2021-03-24 11:20] LABS: ALBUMIN 3.4 g/dl (3.4-5.0); CALCIUM 8.6 mg/dL (8.5-10.1)
[2021-03-24 11:21] LABS: BILIRUBIN,TOTAL 0.4 mg/dL (0.2-1); TOT PROT 6.8 g/dl (6.4-8.2)
[2021-03-24 11:23] LABS: BLOOD UREA NITROGEN 14.8 mg/dL (7-18)
[2021-03-24] MEDS: THIAMINE HCL 100 MG TABLET (FP) PO SCH (22:52)
[2021-03-24] MEDS: MELATONIN 5 MG TABLETS PO SCH (22:52)
[2021-03-25] MEDS: hydrOXYzine PAMOATE 25 MG CAPSULE (FP) PO SCH ×5 (05:56→22:19)
[2021-03-25] MEDS: LORazepam 1 MG TABLET PO SCH ×4 (05:56→22:19)
[2021-03-25] MEDS: amLODIPine BESYLATE 5 MG TABLET (FP) PO SCH (10:08)
[2021-03-25] MEDS: ASPIRIN 81 MG CHEWABLE TABLETS PO SCH (10:08)
[2021-03-25] MEDS: PRENATAL VITAMINS W/ FOLIC ACID TABLET (FP) PO SCH (10:08)
[2021-03-25] MEDS: METHOCARBAMOL 500 MG TABLET PO PRN (10:08)
[2021-03-25] MEDS: PANTOPRAZOLE 40 MG TABLET PO SCH (10:08)
[2021-03-25] MEDS: THIAMINE HCL 100 MG TABLET (FP) PO SCH (22:19)
[2021-03-25] MEDS: MELATONIN 5 MG TABLETS PO SCH (22:19)
[2021-03-26] MEDS ORDERED: LORazepam 0.5 MG TABLET PO PRN
[2021-03-26] MEDS: hydrOXYzine PAMOATE 25 MG CAPSULE (FP) PO SCH ×5 (06:02→22:25)
[2021-03-26] MEDS: LORazepam 0.5 MG TABLET PO SCH ×4 (06:06→22:25)
[2021-03-26] MEDS: PRENATAL VITAMINS W/ FOLIC ACID TABLET (FP) PO SCH (10:07)
[2021-03-26] MEDS: amLODIPine BESYLATE 5 MG TABLET (FP) PO SCH (10:07)
[2021-03-26] MEDS: PANTOPRAZOLE 40 MG TABLET PO SCH (10:07)
[2021-03-26] MEDS: ASPIRIN 81 MG CHEWABLE TABLETS PO SCH (10:07)
[2021-03-26] MEDS: METHOCARBAMOL 500 MG TABLET PO PRN (10:08)
[2021-03-26] MEDS: TAMSULOSIN HCL 0.4 MG CAP PO SCH (12:30)
[2021-03-26] MEDS: MELATONIN 5 MG TABLETS PO SCH (22:25)
[2021-03-26] MEDS: THIAMINE HCL 100 MG TABLET (FP) PO SCH (22:25)
[2021-03-27] MEDS ORDERED: LORazepam 0.5 MG TABLET PO ONE (05:00)
[2021-03-27] MEDS: hydrOXYzine PAMOATE 25 MG CAPSULE (FP) PO SCH ×3 (05:02→14:03)
[2021-03-27] MEDS: TAMSULOSIN HCL 0.4 MG CAP PO SCH (07:33)
[2021-03-27 09:45] VITALS: BP 140/91; PULSE 71; TEMP 96.9
[2021-03-27] MEDS: ASPIRIN 81 MG CHEWABLE TABLETS PO SCH (10:13)
[2021-03-27] MEDS: PRENATAL VITAMINS W/ FOLIC ACID TABLET (FP) PO SCH (10:13)
[2021-03-27] MEDS: amLODIPine BESYLATE 5 MG TABLET (FP) PO SCH (10:13)
[2021-03-27] MEDS: PANTOPRAZOLE 40 MG TABLET PO SCH (10:13)
== END 2021-03-27 15:04 | disposition home or self-care (01) | DRG 775 ==
LOC: YASAS 14:47 → Y3N 20:22
PROVIDERS: ADMIT Allergy & Immunology; ATTEND Allergy & Immunology
PROC: HZ2ZZZZ Detoxification Services for Substance Abuse Treatment (ICD-10-PCS; principal; 2021-03-23)
DX: F10.230 Alcohol dependence with withdrawal, uncomplicated (principal); F12.20 Cannabis dependence, uncomplicated; F17.210 Nicotine dependence, cigarettes, uncomplicated; I11.0 Hypertensive heart disease with heart failure; I50.9 Heart failure, unspecified; K21.9 Gastro-esophageal reflux disease without esophagitis; E05.90 Thyrotoxicosis, unspecified without thyrotoxic crisis or storm; M15.9 Polyosteoarthritis, unspecified
CPT/HCPCS: 36415; 80053; 85027; 86780; C9803; U0003; U0005

== ENCOUNTER 2021-04-02 06:56 | Inpatient (IN) | payer OTHER ==
[2021-04-02 07:43] VITALS: BMI 22.2
[2021-04-02] MEDS ORDERED: BISMUTH SUBSALICYLATE 524 MG/30 ML PO PRN (09:01)
[2021-04-02] MEDS ORDERED: LORazepam 1 MG TABLET PO PRN (09:01)
[2021-04-02] MEDS ORDERED: MAGNESIUM HYDROX 2400MG/30ML ORAL SUSPENSION 30 ML CUP PO PRN (09:01)
[2021-04-02] MEDS ORDERED: NICOTINE POLACRILEX 2 MG GUM BUC PRN (09:01)
[2021-04-02] MEDS ORDERED: MENTHOL/PHENOL 1 EACH UD MM PRN (09:01)
[2021-04-02] MEDS ORDERED: ONDANSETRON *ODT* 4 MG TABLET SL PRN (09:01)
[2021-04-02] MEDS ORDERED: MAG HYDROX/AL HYDROX/SIMETH 30 ML UNIT-DOSE CUP PO PRN (09:01)
[2021-04-02] MEDS ORDERED: NICOTINE 10 MG CARTRIDGE (INHALER) IH PRN (09:01)
[2021-04-02] MEDS ORDERED: IBUPROFEN 400 MG TABLET (FP) PO PRN (09:01)
[2021-04-02] MEDS ORDERED: ACETAMINOPHEN 325 MG TABLET (FP) PO PRN ×2 (09:01)
[2021-04-02] MEDS ORDERED: MAGNESIUM CITRATE 300 ML BOTTLE PO PRN (09:01)
[2021-04-02] MEDS: NICOTINE 21 MG/24 HOURS TOPICAL PATCH TD SCH (10:46)
[2021-04-02] MEDS: PANTOPRAZOLE 40 MG TABLET PO SCH (10:48)
[2021-04-02] MEDS: LORazepam 2 MG TABLET PO SCH ×3 (10:48→22:38)
[2021-04-02] MEDS: ASPIRIN 81 MG CHEWABLE TABLETS PO SCH (10:48)
[2021-04-02] MEDS: amLODIPine BESYLATE 5 MG TABLET (FP) PO SCH (10:49)
[2021-04-02] MEDS: PRENATAL VITAMINS W/ FOLIC ACID TABLET (FP) PO SCH (10:49)
[2021-04-02] MEDS: hydrOXYzine PAMOATE 25 MG CAPSULE (FP) PO SCH ×4 (10:49→22:38)
[2021-04-02 13:54] LABS: HEMATOCRIT 41.8 % (35.4-49); HEMOGLOBIN 14.4 GM/dL (11.7-16.9); MCH 33.5 pg (25.7-33.7); MCHC 34.5 g/dl (32.0-35.9); MEAN CELL VOLUME 97.3 fl (80-96); MEAN PLT VOLUME 8.6 fl (7.5-11.1); PLATELET COUNT 231 10^3/uL (134-434); RDW 14.2 % (11.9-15.9); WHITE BLOOD COUNT 7.9 K/mm3 (4.0-10.0)
[2021-04-02 14:09] LABS: BLOOD UREA NITROGEN 13.3 mg/dL (7-18)
[2021-04-02 14:11] LABS: ALBUMIN 4.4 g/dl (3.4-5.0)
[2021-04-02 14:12] LABS: CREATININE 1.2 mg/dL (0.55-1.3)
[2021-04-02 14:14] LABS: TOT PROT 8.3 g/dl (6.4-8.2)
[2021-04-02 14:15] LABS: BILIRUBIN,TOTAL 1.9 mg/dL (0.2-1)
[2021-04-02 14:59] LABS: HIV INTERPRETATION NEGATIVE (NEGATIVE)
[2021-04-02] MEDS: THIAMINE HCL 100 MG TABLET (FP) PO SCH (22:38)
[2021-04-02] MEDS: MELATONIN 5 MG TABLETS PO SCH (22:38)
[2021-04-03] MEDS: LORazepam 2 MG TABLET PO SCH ×4 (05:41→22:17)
[2021-04-03] MEDS: hydrOXYzine PAMOATE 25 MG CAPSULE (FP) PO SCH ×5 (05:41→22:17)
[2021-04-03] MEDS: PRENATAL VITAMINS W/ FOLIC ACID TABLET (FP) PO SCH (10:17)
[2021-04-03] MEDS: METHOCARBAMOL 500 MG TABLET PO PRN (10:18)
[2021-04-03] MEDS: amLODIPine BESYLATE 5 MG TABLET (FP) PO SCH (10:18)
[2021-04-03] MEDS: PANTOPRAZOLE 40 MG TABLET PO SCH (10:18)
[2021-04-03] MEDS: ASPIRIN 81 MG CHEWABLE TABLETS PO SCH (10:18)
[2021-04-03] MEDS: NICOTINE 21 MG/24 HOURS TOPICAL PATCH TD SCH (10:20)
[2021-04-03] MEDS: MELATONIN 5 MG TABLETS PO SCH (22:17)
[2021-04-03] MEDS: THIAMINE HCL 100 MG TABLET (FP) PO SCH (22:17)
[2021-04-04] MEDS: hydrOXYzine PAMOATE 25 MG CAPSULE (FP) PO SCH ×5 (06:13→21:59)
[2021-04-04] MEDS: LORazepam 1 MG TABLET PO SCH ×4 (06:13→21:59)
[2021-04-04] MEDS: ASPIRIN 81 MG CHEWABLE TABLETS PO SCH (10:01)
[2021-04-04] MEDS: PRENATAL VITAMINS W/ FOLIC ACID TABLET (FP) PO SCH (10:01)
[2021-04-04] MEDS: amLODIPine BESYLATE 5 MG TABLET (FP) PO SCH (10:01)
[2021-04-04] MEDS: NICOTINE 21 MG/24 HOURS TOPICAL PATCH TD SCH (10:01)
[2021-04-04] MEDS: PANTOPRAZOLE 40 MG TABLET PO SCH (10:01)
[2021-04-04] MEDS: METHOCARBAMOL 500 MG TABLET PO PRN ×2 (10:01→21:59)
[2021-04-04] MEDS: THIAMINE HCL 100 MG TABLET (FP) PO SCH (21:59)
[2021-04-04] MEDS: MELATONIN 5 MG TABLETS PO SCH (21:59)
[2021-04-05] MEDS ORDERED: LORazepam 0.5 MG TABLET PO PRN
[2021-04-05] MEDS: LORazepam 0.5 MG TABLET PO SCH ×4 (06:00→22:12)
[2021-04-05] MEDS: hydrOXYzine PAMOATE 25 MG CAPSULE (FP) PO SCH ×5 (06:00→22:13)
[2021-04-05] MEDS: PRENATAL VITAMINS W/ FOLIC ACID TABLET (FP) PO SCH (10:15)
[2021-04-05] MEDS: PANTOPRAZOLE 40 MG TABLET PO SCH (10:15)
[2021-04-05] MEDS: amLODIPine BESYLATE 5 MG TABLET (FP) PO SCH (10:15)
[2021-04-05] MEDS: ASPIRIN 81 MG CHEWABLE TABLETS PO SCH (10:15)
[2021-04-05] MEDS: NICOTINE 21 MG/24 HOURS TOPICAL PATCH TD SCH (10:16)
[2021-04-05 14:25] LABS: ALBUMIN 3.6 g/dl (3.4-5.0)
[2021-04-05 14:28] LABS: BILIRUBIN,DIRECT 0.2 mg/dL (0.0-0.2)
[2021-04-05 14:30] LABS: BILIRUBIN,TOTAL 1.2 mg/dL (0.2-1); TOT PROT 7.4 g/dl (6.4-8.2)
[2021-04-05] MEDS: THIAMINE HCL 100 MG TABLET (FP) PO SCH (22:12)
[2021-04-05] MEDS: MELATONIN 5 MG TABLETS PO SCH (22:12)
[2021-04-06] MEDS ORDERED: LORazepam 0.5 MG TABLET PO ONE (05:00)
[2021-04-06] MEDS: hydrOXYzine PAMOATE 25 MG CAPSULE (FP) PO SCH ×2 (05:54→10:20)
[2021-04-06 09:31] VITALS: BP 111/70; PULSE 78; TEMP 98.4
[2021-04-06] MEDS: PRENATAL VITAMINS W/ FOLIC ACID TABLET (FP) PO SCH (10:19)
[2021-04-06] MEDS: PANTOPRAZOLE 40 MG TABLET PO SCH (10:20)
[2021-04-06] MEDS: amLODIPine BESYLATE 5 MG TABLET (FP) PO SCH (10:20)
[2021-04-06] MEDS: NICOTINE 21 MG/24 HOURS TOPICAL PATCH TD SCH (10:20)
[2021-04-06] MEDS: ASPIRIN 81 MG CHEWABLE TABLETS PO SCH (10:20)
== END 2021-04-06 12:20 | disposition home or self-care (01) | DRG 775 ==
LOC: YASAS 06:56 → Y6N 10:02
PROVIDERS: ADMIT Allergy & Immunology; ATTEND Allergy & Immunology
PROC: HZ2ZZZZ Detoxification Services for Substance Abuse Treatment (ICD-10-PCS; principal; 2021-04-02)
DX: F10.230 Alcohol dependence with withdrawal, uncomplicated (principal); F12.10 Cannabis abuse, uncomplicated; F17.210 Nicotine dependence, cigarettes, uncomplicated; F10.220 Alcohol dependence with intoxication, uncomplicated; E86.0 Dehydration; I10 Essential (primary) hypertension; N40.0 Benign prostatic hyperplasia without lower urinary tract symptoms; M19.90 Unspecified osteoarthritis, unspecified site; R76.11 Nonspecific reaction to tuberculin skin test without active tuberculosis; Z56.0 Unemployment, unspecified; Z59.0 Homelessness
CPT/HCPCS: 36415; 71046-TC-FY; 80053; 80076; 85027; 86780; 87389; C9803; U0003; U0005

== ENCOUNTER 2024-10-20 22:08 | Inpatient (IN) | payer OTHER ==
[2024-10-20 22:36] VITALS: BMI 19.5
[2024-10-20] MEDS ORDERED: MAGNESIUM HYDROX 2400MG/30ML ORAL SUSPENSION 30 ML CUP PO PRN (23:09)
[2024-10-20] MEDS ORDERED: BISMUTH SUBSALICYLATE 524 MG/30 ML PO PRN (23:09)
[2024-10-20] MEDS ORDERED: NALOXONE (NARCAN) HCL 4 MG/0.1 ML SPRAY NS PRN (23:09)
[2024-10-20] MEDS ORDERED: BENZONATATE 200 MG CAPSULE PO PRN (23:09)
[2024-10-20] MEDS ORDERED: ONDANSETRON *ODT* 4 MG TABLET SL PRN (23:09)
[2024-10-20] MEDS ORDERED: POLYETHYLENE GLYCOL (HEALTHYLAX) 3350 17 GM PACKET PO PRN (23:09)
[2024-10-20] MEDS ORDERED: guaiFENesin 600 MG TABLET.ER (FP) PO PRN (23:09)
[2024-10-20] MEDS ORDERED: MAG HYDROX/AL HYDROX/SIMETH 30 ML UNIT-DOSE CUP PO PRN (23:09)
[2024-10-20] MEDS ORDERED: NICOTINE POLACRILEX 2 MG LOZENGE BC PRN (23:09)
[2024-10-20] MEDS ORDERED: LOPERAMIDE HCL 2 MG CAPSULE PO PRN (23:09)
[2024-10-20] MEDS ORDERED: BENZOCAINE/MENTHOL (CHLORASEPTIC ) LOZENGE MM PRN (23:09)
[2024-10-20] MEDS ORDERED: IBUPROFEN 600 MG TABLET (FP) PO PRN (23:09)
[2024-10-20] MEDS ORDERED: IBUPROFEN 400 MG TABLET (FP) PO PRN (23:09)
[2024-10-20] MEDS ORDERED: DICYCLOMINE HCL 10 MG CAPSULE PO PRN (23:09)
[2024-10-20] MEDS ORDERED: ACETAMINOPHEN 325 MG TABLET (FP) PO PRN (23:09)
[2024-10-21] MEDS: hydrOXYzine PAMOATE 25 MG CAPSULE (FP) PO PRN (06:27)
[2024-10-21] MEDS: PRENATAL VITAMINS W/ FOLIC ACID TABLET (FP) PO SCH (10:51)
[2024-10-21] MEDS: ASPIRIN 81 MG CHEWABLE TABLETS PO SCH (10:51)
[2024-10-21] MEDS: amLODIPine BESYLATE 5 MG TABLET (FP) PO SCH (10:52)
[2024-10-21] MEDS: NICOTINE 14 MG/24 HOURS TOPICAL PATCH TD SCH (10:52)
[2024-10-21] MEDS: PANTOPRAZOLE 40 MG TABLET PO SCH (10:52)
[2024-10-21 11:25] LABS: CHLORIDE 105 mmol/L (98-107); POTASSIUM 3.7 mmol/L (3.5-5.1); SODIUM 140 mmol/L (136-145)
[2024-10-21 11:27] LABS: HEMOGLOBIN 13.8 GM/dL (11.7-16.9); MCH 32.1 pg (25.7-33.7); MCHC 33.6 g/dl (32.0-35.9); MEAN CELL VOLUME 95.5 fl (80-96); MEAN PLT VOLUME 7.7 fl (7.5-11.1); PLATELET COUNT 311 10^3/uL (134-434); RBC 4.29 M/mm3 (4.00-5.60); RDW 14.7 % (11.9-15.9)
[2024-10-21 11:35] LABS: ALBUMIN 3.5 g/dl (3.4-5.0); ANION GAP 9 mmol/L (4-13); BLOOD UREA NITROGEN 16.9 mg/dL (7-18); CO2 26 mmol/L (21-32); GLUCOSE,RANDOM 85 mg/dL (74-106)
[2024-10-21 11:38] LABS: SGOT/AST 38 U/L (15-37); SGPT/ALT 29 U/L (13-61)
[2024-10-21 11:39] LABS: CREATININE 1.1 mg/dL (0.55-1.3)
[2024-10-21 11:40] LABS: BILIRUBIN,TOTAL 1.5 mg/dL (0.2-1)
[2024-10-21 11:41] LABS: ALK PHOS 59 U/L (45-117)
[2024-10-21] MEDS: amLODIPine BESYLATE 5 MG TABLET (FP) PO ONE ×2 (19:09)
[2024-10-21] MEDS: MELATONIN 5 MG TABLETS PO SCH (22:53)
[2024-10-21] MEDS: THIAMINE 100 MG TABLET PO SCH (22:53)
[2024-10-22 06:37] VITALS: PULSE 75
[2024-10-22] MEDS: amLODIPine BESYLATE 10 MG TABLET (FP) PO SCH (09:04)
[2024-10-22] MEDS: NALTREXONE HCL 50 MG TABLET PO SCH (09:04)
[2024-10-22] MEDS: METHOCARBAMOL 500 MG TABLET PO PRN (09:07)
[2024-10-22 09:27] VITALS: BP 144/115; RESP 16; TEMP 97.6
[2024-10-22] MEDS ORDERED: HYDROCHLOROTHIAZIDE 12.5 MG CAPSULE (FP) PO SCH (17:00)
== END 2024-10-22 09:31 | disposition home or self-care (01) | DRG 774 ==
LOC: YASAS 22:08 → Y3N 23:27
PROVIDERS: ADMIT Allergy & Immunology; ATTEND Allergy & Immunology
PROC: HZ2ZZZZ Detoxification Services for Substance Abuse Treatment (ICD-10-PCS; principal; 2024-10-20)
DX: F10.20 Alcohol dependence, uncomplicated (principal); F14.20 Cocaine dependence, uncomplicated; F12.20 Cannabis dependence, uncomplicated; F17.210 Nicotine dependence, cigarettes, uncomplicated; I10 Essential (primary) hypertension
CPT/HCPCS: 36415; 71046-TC-FY; 80053; 80305; 80307; 85027; 86780; 93005; 93010